=== PATIENT | female | born 1980 | race Hispanic/Latino ===

== ENCOUNTER → 2020-01-09 | Outpatient (CLI) | payer BC | END | disposition home or self-care (01) | LOC: SHCH 15:32 | PROVIDERS: ATTEND Internal Medicine Cardiovascular Disease | DX: I87.2 Venous insufficiency (chronic) (peripheral) (principal) | CPT/HCPCS: 93970 ==

== ENCOUNTER → 2020-01-30 | Outpatient (CLI) | payer BC | END | disposition home or self-care (01) | LOC: SHCH 13:25 | PROVIDERS: ATTEND Internal Medicine Cardiovascular Disease | DX: I82.812 Embolism and thrombosis of superficial veins of left lower extremity (principal); Z09 Encounter for follow-up examination after completed treatment for conditions other than malignant neoplasm | CPT/HCPCS: 93971 ==

== ENCOUNTER → 2023-01-30 | Outpatient (CLI) | payer BC | END | disposition home or self-care (01) | LOC: SHCH 10:39 | PROVIDERS: ATTEND Internal Medicine Cardiovascular Disease | DX: R07.9 Chest pain, unspecified (principal) | CPT/HCPCS: 93306 ==

== ENCOUNTER → 2023-02-21 | Outpatient (CLI) | payer OTHER | END | disposition home or self-care (01) | LOC: OIH 08:12 | PROVIDERS: ATTEND Internal Medicine Cardiovascular Disease | DX: Z13.6 Encounter for screening for cardiovascular disorders (principal) | CPT/HCPCS: 75571 ==

== ENCOUNTER → 2023-03-12 | Outpatient (CLI) | payer BC | END | disposition home or self-care (01) | LOC: SHCH 10:39 | PROVIDERS: ATTEND Internal Medicine Cardiovascular Disease | DX: I87.2 Venous insufficiency (chronic) (peripheral) (principal) | CPT/HCPCS: 93970 ==

== ENCOUNTER → 2023-11-25 | Outpatient (CLI) | payer BC | END | disposition home or self-care (01) | LOC: SHCH 15:49 | PROVIDERS: ATTEND Internal Medicine Cardiovascular Disease | DX: I87.2 Venous insufficiency (chronic) (peripheral) (principal); I82.441 Acute embolism and thrombosis of right tibial vein | CPT/HCPCS: 93971 ==